=== PATIENT | male | born 1930 | race African-American/Black ===

== ENCOUNTER 2019-04-14 16:18 | Inpatient (IN) | payer MEDICARE, OTHER ==
[~2019-04-14] VITALS: Ht 172.7 cm; Wt 76.7 kg
[~2019-04-14 16:18] MED LIST: GABA600T7 PO; TRAM50TA PO; VENTOLIN HFA18 GM INH
[2019-04-14] MEDS ORDERED: IV NORMAL SALINE 1000ML BAG 1,000 ML IV ONE (17:00)
[2019-04-14 17:01] LABS: BILIRUBIN,URINE NEGATIVE (NEG); CLARITY,URINE CLEAR; COLOR,URINE YELLOW; NITRITE,URINE NEGATIVE (NEG); PH,URINE 6.5; PROTEIN,URINE NEGATIVE (NEG-TRACE)
[2019-04-14 17:06] LABS: BASO # 0.1 x10^3/uL (0.0-0.2); BASO % 1 % (0-3); EOS # 0.1 x10^3/uL (0.0-0.7); EOS % 2 % (0-3); HEMATOCRIT 43.9 % (39.0-53.0); HEMOGLOBIN 14.9 g/dL (13.0-17.5); LYMPH % 27 % (24-48); MEAN CORPUSCULAR HEMOGLOBIN 31 pg (25-35); MEAN CORPUSCULAR HGB CONC 34 g/dL (31-37); MEAN CORPUSCULAR VOLUME 92 fL (79-100); MONO # 0.6 x10^3/uL (0.0-1.1); MONO % 8 % (0-9); NEUT # 4.7 x10^3/uL (1.8-7.7); NEUT % 63 % (31-73); PLATELET COUNT 195 x10^3/uL (140-400); RED BLOOD COUNT 4.79 x10^6/uL (4.30-5.70); RED CELL DISTRIBUTION WIDTH 13.2 % (11.5-14.5); WHITE BLOOD COUNT 7.5 x10^3/uL (4.0-11.0)
[2019-04-14 17:08] LABS: AMPHETAMINE/METHAMPHETAMINE NEG (NEG); BARBITURATES NEG (NEG); BENZODIAZEPINES NEG (NEG); CANNABINOIDS NEG (NEG); COCAINE NEG (NEG); METHADONE NEG (NEG); OPIATES NEG (NEG); PHENCYCLIDINE NEG (NEG)
[2019-04-14 17:13] LABS: BACTERIA,URINE 0 /HPF (0-FEW); WBC,URINE 0 /HPF (0-4)
--- NOTE | 2019-04-14 17:25 | RAD ---
Examination: CT HEAD WO CONTRAST History: Altered mental status Comparison/Correlation: 06/08/2015 CT head without contrast Findings: Axial images of the head were obtained without contrast. Atrophy and chronic ischemic changes white matter noted. No intracranial hemorrhage, then shift, or mass effect. Left basal ganglier old lacunar infarct is present. No midline shift or mass effect. No depressed fracture. Impression: No suspicious new findings. Small old left basal ganglier lacunar infarct. PQRS Compliance Statement: One or more of the following individualized dose reduction techniques were utilized for this examination: 1. Automated exposure control 2. Adjustment of the mA and/or kV according to patient size 3. Use of iterative reconstruction technique Electronically signed by: Levi Penny MD (04/14/2019 5:22 PM) [facility]
[2019-04-14 17:27] LABS: CALCIUM 9.1 mg/dL (8.5-10.1); CREATININE 0.9 mg/dL (0.7-1.3); GFR 96.1; POTASSIUM 3.5 mmol/L (3.5-5.1)
[2019-04-14 17:34] LABS: ALBUMIN 3.7 g/dL (3.4-5.0); MAGNESIUM 1.7 mg/dL (1.8-2.4); TOTAL BILIRUBIN 0.4 mg/dL (0.2-1.0); TOTAL PROTEIN 7.4 g/dL (6.4-8.2)
[2019-04-14 17:38] LABS: CREATINE KINASE 52 U/L (39-308)
--- NOTE | 2019-04-14 17:44 | EKG ---
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
--- NOTE | 2019-04-14 18:28 | RAD ---
AP chest. HISTORY: Altered mental status AP view was taken of the chest. Lungs are clear. There is a hiatus hernia. There is no pleural effusion. Heart is normal in size. IMPRESSION: 1. Hiatus hernia. 2. No acute infiltrates. Electronically signed by: Rafael Love MD (04/14/2019 6:25 PM) [id number]
[2019-04-14 18:59] LABS: INFLUENZA A PATIENT NEGATIVE (NEGATIVE); INFLUENZA B PATIENT NEGATIVE (NEGATIVE)
[2019-04-14] MEDS ORDERED: ACETAMINOPHEN 325 MG TABLET. PO PRN ×2 (19:00→20:30)
[2019-04-14] MEDS ORDERED: ONDANSETRON PF 4 MG/2 ML VIAL. IV PRN ×2 (19:00→20:30)
--- NOTE | 2019-04-14 19:03 | PHYS DOC ---
Past Medical History Past Medical History: Asthma, Bronchitis, CVA, Other Additional Past Medical Histor: CHRONIC HIP PAIN, EMPHYSEMA Past Surgical History: Other Additional Past Surgical Histo: "BLEEDING ULCER REPAIR" Alcohol Use: None Drug Use: None Adult General Chief Complaint Chief Complaint: ALTERED MENTAL STATUS [facility] HPI Patient is a 88 year old male with history of previous CVA presenting to the ED today to be evaluated, reports patient has been acting normal for the last one week. reports patient had been saying things that are not real and doing unusual things like trying to turn on the car but was unable to because he could not remember how to. reports on another occasion patient tried to turn on the car with a house machado setting of the alarm. states patient informed her he was going to zoroastrianism earlier today but informed us in the Ed he was going to the store when he tried to get into the car sometime today. Patient himself states the and daughter are making things up about his behavior. reports patient is agitated as well Review of Systems Review of Systems Constitutional: Denies fever or chills [] Eyes: Denies change in visual acuity, redness, or eye pain [] HENT: Denies nasal congestion or sore throat [] Respiratory: Denies cough or shortness of breath [] Cardiovascular: No additional information not addressed in HPI [] GI: Denies abdominal pain, nausea, vomiting, bloody stools or diarrhea [] : Denies dysuria or hematuria [] Musculoskeletal: Denies back pain or joint pain [] Integument: Denies rash or skin lesions [] Neurologic: AMS. Denies headache, focal weakness or sensory changes [] Psych:psychosis. All other systems were reviewed and found to be within normal limits, except as documented in this note. Current Medications Current Medications Current Medications Medications (Trade) Dose Ordered Sig/Janelle Start Time Stop Time Status Last Admin Dose Admin Sodium Chloride 1,000 ml @ 1,000 mls/hr 1X ONCE 04/14/19 17:00 04/14/19 17:59 DC 04/14/19 18:07 1,000 MLS/HR Allergies Allergies Allergies Coded Allergies Type Severity Reaction Last Updated Verified No Known Drug Allergies 06/08/15 No Physical Exam Physical Exam Constitutional: Well developed, well nourished, no acute distress, non-toxic appearance. [] HENT: Normocephalic, atraumatic, bilateral external ears normal, oropharynx moist, no oral exudates, nose normal. [] Eyes: PERRLA, EOMI, conjunctiva normal, no discharge. [] Neck: Normal range of motion, no tenderness, supple, no stridor. [] Cardiovascular:Heart rate regular rhythm, no murmur [] Lungs & Thorax: Bilateral breath sounds clear to auscultation [] Abdomen: Bowel sounds normal, soft, no tenderness, no masses, no pulsatile masses. [] Skin: Warm, dry, no erythema, no rash. [] Back: No tenderness, no CVA tenderness. [] Extremities: No tenderness, no cyanosis, no clubbing, ROM intact, no edema. [] Neurologic: Alert and oriented X 3, normal motor function, normal sensory function, no focal deficits noted. Cranial nerves II through XII intact. Slight drop to the right face from previous stroke Psychologic: Affect normal, judgement normal, mood normal. [] Current Patient Data Vital Signs Vital Signs Date Time Temp Pulse Resp B/P (MAP) Pulse Ox O2 Delivery O2 Flow Rate FiO2 04/14/19 18:05 71 04/14/19 16:53 20 98 04/14/19 16:30 98.6 192/92 (125) Room Air 98.6 Lab Values Laboratory Tests Test 04/14/19 16:30 04/14/19 16:55 04/14/19 18:13 04/14/19 18:25 Urine Collection Type Unknown Urine Color Yellow Urine Clarity Clear Urine pH 6.5 Urine Specific [place] 1.015 Urine Protein Negative mg/dL (NEG-TRACE) Urine Glucose (UA) Negative mg/dL (NEG) Urine Ketones (Stick) Negative mg/dL (NEG) Urine Blood Negative (NEG) Urine Nitrite Negative (NEG) Urine Bilirubin Negative (NEG) Urine Urobilinogen Dipstick 1.0 mg/dL (0.2 mg/dL) Urine Leukocyte Esterase Negative (NEG) Urine RBC 1-2 /HPF (0-2) Urine WBC 0 /HPF (0-4) Urine Bacteria 0 /HPF (0-FEW) Urine Mucus Slight /LPF Urine Opiates Screen Neg (NEG) Urine Methadone Screen Neg (NEG) Urine Barbiturates Neg (NEG) Urine Phencyclidine Screen Neg (NEG) Urine Amphetamine/Methamphetamine Neg (NEG) Urine Benzodiazepines Screen Neg (NEG) Urine Cocaine Screen Neg (NEG) Urine Cannabinoids Screen Neg (NEG) Urine Ethyl Alcohol Neg (NEG) White Blood Count 7.5 x10^3/uL (4.0-11.0) Red Blood Count 4.79 x10^6/uL (4.30-5.70) Hemoglobin 14.9 g/dL (13.0-17.5) Hematocrit 43.9 % (39.0-53.0) Mean Corpuscular Volume 92 fL (79-100) Mean Corpuscular Hemoglobin 31 pg (25-35) Mean Corpuscular Hemoglobin Concent 34 g/dL (31-37) Red Cell Distribution Width 13.2 % (11.5-14.5) Platelet Count 195 x10^3/uL (140-400) Neutrophils (%) (Auto) 63 % (31-73) Lymphocytes (%) (Auto) 27 % (24-48) Monocytes (%) (Auto) 8 % (0-9) Eosinophils (%) (Auto) 2 % (0-3) Basophils (%) (Auto) 1 % (0-3) Neutrophils # (Auto) 4.7 x10^3/uL (1.8-7.7) Lymphocytes # (Auto) 2.0 x10^3/uL (1.0-4.8) Monocytes # (Auto) 0.6 x10^3/uL (0.0-1.1) Eosinophils # (Auto) 0.1 x10^3/uL (0.0-0.7) Basophils # (Auto) 0.1 x10^3/uL (0.0-0.2) Prothrombin Time 13.0 SEC (11.7-14.0) Prothrombin Time INR 1.0 (0.8-1.1) Activated Partial Thromboplast Time 30 SEC (24-38) Sodium Level 141 mmol/L (136-145) Potassium Level 3.5 mmol/L (3.5-5.1) Chloride Level 105 mmol/L (98-107) Carbon Dioxide Level 29 mmol/L (21-32) Anion Gap 7 (6-14) Blood Urea Nitrogen 14 mg/dL (8-26) Creatinine 0.9 mg/dL (0.7-1.3) Estimated GFR (Cockcroft-Gault) 96.1 BUN/Creatinine Ratio 16 (6-20) Glucose Level 148 mg/dL (70-99) H Calcium Level 9.1 mg/dL (8.5-10.1) Magnesium Level 1.7 mg/dL (1.8-2.4) L Total Bilirubin 0.4 mg/dL (0.2-1.0) Aspartate Amino Transferase (AST) 33 U/L (15-37) Alanine Aminotransferase (ALT) 42 U/L (16-63) Alkaline Phosphatase 74 U/L (46-116) Creatine Kinase 52 U/L (39-308) Creatine Kinase MB (Mass) 0.8 ng/mL (0.0-3.6) Creatine Kinase MB Relative Index % (0-4) Troponin I Quantitative < 0.017 ng/mL (0.000-0.055) WU-[id number]-Type Natriuretic Peptide 157 pg/mL (0-449) Total Protein 7.4 g/dL (6.4-8.2) Albumin 3.7 g/dL (3.4-5.0) Albumin/Globulin Ratio 1.0 (1.0-1.7) Lipase 59 U/L (73-393) L Procalcitonin < 0.10 ng/mL (0.00-0.10) Thyroid Stimulating Hormone (TSH) 3.114 uIU/mL (0.358-3.74) Influenza Type A Antigen Negative (NEGATIVE) Influenza Type B Antigen Negative (NEGATIVE) Lactic Acid Level 1.4 mmol/L (0.4-2.0) Ammonia < 10 mcmol/L (11-34) L Laboratory Tests 04/14/19 16:55 Laboratory Tests 04/14/19 16:55 Current Patient Data Vital Signs Date Time Temp Pulse Resp B/P (MAP) Pulse Ox O2 Delivery O2 Flow Rate FiO2 04/14/19 18:05 71 04/14/19 16:53 20 98 04/14/19 16:30 98.6 192/92 (125) Room Air 98.6 EKG EKG [address] Patel sinus rhythm HR 68 no STEMI[] Radiology/Procedures Radiology/Procedures []PROCEDURE: PORTABLE CHEST 1V AP chest. HISTORY: Altered mental status AP view was taken of the chest. Lungs are clear. There is a hiatus hernia. There is no pleural effusion. Heart is normal in size. IMPRESSION: 1. Hiatus hernia. 2. No acute infiltrates. Electronically signed by: Rafael Love MD (04/14/2019 6:25 PM) [facility] DICTATED and SIGNED BY: RAFAEL LOVE MD DATE: 04/14/19 182 PROCEDURE: CT HEAD WO CONTRAST Examination: CT HEAD WO CONTRAST History: Altered mental status Comparison/Correlation: 06/08/2015 CT head without contrast Findings: Axial images of the head were obtained without contrast. Atrophy and chronic ischemic changes white matter noted. No intracranial hemorrhage, then shift, or mass effect. Left basal ganglier old lacunar infarct is present. No midline shift or mass effect. No depressed fracture. Impression: No suspicious new findings. Small old left basal ganglier lacunar infarct. [facility]UST Compliance Statement: One or more of the following individualized dose reduction techniques were utilized for this examination: 1. Automated exposure control 2. Adjustment of the mA and/or kV according to patient size 3. Use of iterative reconstruction technique Electronically signed by: Levi Mace MD (04/14/2019 5:22 PM) [facility] DICTATED and SIGNED BY: LEVI MACE MD DATE: 04/14/19 172 Course & Med Decision Making Course & Med Decision Making Pertinent Labs and Imaging studies reviewed. (See chart for details) This is a 88-year-old male patient presenting to the ED today with the with complaints of patient not acting normal. See history of present illness. CT of the head is negative. Lab work is negative. Results were given to patient, and the daughter. Patient's daughter pulled me out of the room she states patient has been violent to the and she would like patient to stay. I asked her what she means by violent- is it physical or verbal or both. She gives an example the father trying to start the car and the taking the keys from him, she reports patient got upset and started using bad language and tried to grab the keys from the . Informed her I'll talk to the admitting doctor. I spoke to Dr. Granado went through patient's labs and imaging. He felt there is no medical necessity for admission. Information was given to the family including the daughter. The daughter got very upset stating she wants a letter right now from Dr. Granado stating patient will be discharged home despite his behavior and if there is any harm to the patient and family it will be [facility] fault. Informed her Dr. Manrique is not in house and there is no way he can send that type of letter because it is a legality surrounding such communication. She requested someone from management to type the letter and give it to them. Informed her there is no one from Management right now considering it is past business hours and the offices are closed. She continued to insist stating in this day and time the admitting physician should be able to write that letter if not in house fax it, email or send it to the ED right now. Informed her that will not be possible but i can call the admitting physician and expressed their concerns. She asked if i can write the letter informed her i can not do it because i am not the admitting physician I spoke with PAT team who stated if patient is being admitted they will not come and see him until tomorrow. Routine consult placed. I spoke with Dr. Granado again and informed him of the above information. He stated patient can be admitted by family should be made aware if the insurance or medicare does not pay for the admission they will be billed Daughter wanted to talk to me again, Prashanth was at the desk who talked to her see his note. He informed them patient can be suited for [facility]. Daughter now upset stating I withheld information about [facility]. Informed her that kind of information usually is done by PAT team after they evaluate patient and decide appropriate place for him and right now he has not been evaluated until tomorrow. I even tried telling the daughter i already consulted PAT team but with admission pending they will not come until tomorrow. Off note daughter called a LPN RN HOSPICE on speaker phone asking advice who informed her on patient should be admitted and they ( and daughter) can go home and have a good night sleep and tomorrow they can have a game plan. Patient was admitted. Off note patient has been very pleasant A&O X3. Very funny no signs of verbal or physical aggression. Dragon Disclaimer Dragon Disclaimer This electronic medical record was generated, in whole or in part, using a voice recognition dictation system. TPA Screening Tool TPA Screening Tool Screening tool completed (time): Last known normal time: Allergies: [] Criteria for treating patient with IV r-TPA: For symptom onset of 3 hours or less answer questions 1-9: If any answer 1-9 is YES, the patient is NOT Candidate for IV r-TPA. 1. Evidence of intracranial hemorrhage on pretreatment CT. 2. Clinical presentation suggestive of subarachnoid hemorrhage, even with normal CT 3. Known arteriovenous malformation or aneurysm. 4. Recent (within 3 months), intracranial surgery, serious head trauma, or pr evious stroke. 5. History of intracranial hemorrhage. 6. On repeated measurements, systolic blood pressure >185 mmHg or diastolic blood pressure >110 mmHg at the time treatment is to begin, and pt requires aggressive treatment to reduce blood pressure to within these limits (see BP Management section of TPA orders). 7. Known bleeding diathesis, including but not limited to: A) Platelet count less than 100,000mm3 B) Current or recent use of oral anticoagulants (e.g. Warfarin Sodium) with an INR greater than 1.7 C) Administration of heparin within 48 hours preceding the onset of stroke and an elevated PTT 8. Evidence of active bleeding or acute trauma. 9. Patient or family refuse. Warning/Consideration: If any answer 10-18 is YES, evaluate increased risk versus benefit. 10. Minor neurological deficit or rapidly improving symptoms. 11. Patient was observed to have seizure at the same time of onset of stroke symptoms. 12. Abnormal blood glucose (less than 50 or greater than 400 mg/dL). 13. Patient has had major surgery or serious trauma, excluding head trauma, in previous 14 days. 14. History of gastrointestinal or urinary track hemorrhage within 21 days. 15. Post [place] or pericarditis. 16. Recent arterial puncture at a noncompressible site. 17. Recent lumbar puncture. 18. . For symptoms greater than 3 hours but less than 4.5 hours duration: Warning/Consideration: If any answer 19-22 is YES, evaluate increased risk versus benefit. 19. Age greater than 80 years. 20. Current use of oral anticoagulants (e.g.Warfarin Sodium) regardless of protime. 21. Severe stroke (Baseline NIHSS Stroke Scale greater than 25). 22. Patient has both diabetes and history of stroke Initiate TPA (Alteplase)? Critical Care Time Critical Care Time Critical care time was [] minutes exclusive of procedures. Final Impression Final Impression [] NIHSS Stroke Scale NIH Stroke Scale: NIH Stroke Scale Response (Comments) Value Level of Consciousness: 0 Alert/Responsive 0 LOC Questions: 0 Answers both correctly 0 Best Gaze: 0 Normal 0 Visual: 0 No visual loss 0 Facial Palsy: 1 Minor paralysis (from previous stroke) 1 Motor - Left Arm 0 No drift 0 Motor - Right Arm 0 No drift 0 Motor - Left Leg 0 No drift 0 Motor: Right Leg 0 No drift 0 Limb Ataxia: 0 Absent 0 Sensory: 0 No loss 0 Best Language: 0 Normal 0 Dysathria: 0 Normal 0 Extinction and Inattention: 0 Normal 0 Total 1 Departure Departure Impression: Primary Impression: AMS (altered mental status) Additional Impression: Psychosis Disposition: 09 ADMITTED INPATIENT Condition: STABLE Referrals: COURTNEY SHIELDS (PCP) Problem Qualifiers Primary Impression: AMS (altered mental status) Altered mental status type: unspecified Qualified Codes: R41.82 - Altered mental status, unspecified Additional Impression: Psychosis Psychosis type: unspecified psychosis type Qualified Codes: F29 - Unspecified psychosis not due to a substance or known physiological condition GRETA ELLISON APRN Apr 14, 2019 19:03
[2019-04-14] MEDS ORDERED: cloNIDine HCL 0.1 MG TABLET PO PRN (20:00)
[2019-04-14] MEDS ORDERED: LISI-338 PO (20:30)
[2019-04-14] MEDS ORDERED: DEXTROSE 50% 25 GM / 50ML DISP.SYRIN. IV PRN (20:30)
[2019-04-14] MEDS ORDERED: IV DEXTROSE 5% 250 ML BAG. IV PRN (20:30)
[2019-04-14] MEDS: INSULIN LISPRO 300 UNITS/3 ML VIAL. SQ SCH (21:00)
[2019-04-14] MEDS ORDERED: ATORVASTATIN CALCIUM 40 MG TABLET. PO SCH (21:00)
[2019-04-14] MEDS ORDERED: LISINOPRIL 5 MG TABLET. PO ONE (21:00)
[2019-04-14] MEDS ORDERED: ENOXAPARIN 40 MG/0.4 ML SYRINGE. SQ SCH (21:00)
[2019-04-14 21:05] VITALS: BP 175/82
--- NOTE | 2019-04-14 21:05 | NUR ---
The patient, GINI LA, 88 y/o, M admitted by NAHOMI OZUNA MD, was given written information regarding hospital policies, unit procedures and contact persons. Valuables were checked and left with him.
[2019-04-14 23:19] VITALS: BP 158/72
[2019-04-15 02:58] VITALS: BP 147/68
--- NOTE | 2019-04-15 03:30 | NUR ---
Patient A/O x1-2 with confusion able to voice what he needs and wanted through out the night, did get a little lost at times such as when he was trying to go to the bathroom, when staff attempted to direct him to the toilet in his room he was a little embarrassed that he had passed by the bathroom in his room so he would make a joke that there were probably other and more suitable toilets out there just waiting for him to use, at first he would seem angry and then laugh about it, then he became polite right away and said, "You ladies have a good night, and thank you."
[2019-04-15 07:00] VITALS: BP 147/72
[2019-04-15] MEDS: INSULIN LISPRO 300 UNITS/3 ML VIAL. SQ SCH ×2 (07:30→11:30)
[2019-04-15] MEDS ORDERED: MAGNESIUM SULFATE 4GM 100 ML IV ONE (07:30)
--- NOTE | 2019-04-15 07:42 | PDOC1 ---
History and Physical Date of Admission Date of Admission DATE: 04/15/19 TIME: 07:26 Identification/Chief Complaint Chief Complaint Confusion, violent behavior Source Source: Caregiver, Chart review, Patient History of Present Illness History of Present Illness Mr Reeves is an 88yo M w/ PMHx Asthma, h/o CVA, hiatal hernia, PUD who was brought to ED per family 04/14/19 for confusion and violent behavior toward his per daughter and other family. His reports patient has been acting abnormally for the last week. reports patient has been hallucinating and doing unusual things like trying to turn on the car but was unable to because he could not remember how to. reports on another occasion patient tried to turn on the car with a house machado setting of the alarm. Patient himself states the and daughter are making things up about his behavior. reports patient is agitated as well. Family did bring up litigation against [employer] last night if patient was not admitted to the hospital. Patient was not opposed to hospital admission. CT head negative for acute pathology, did confirm old left basal ganglia i nfarct. He has been admitted a few times in the past for similar episodes with hallucinations and confusion, sundowning. Seen by neurology inpatient, no formal evaluation. Found on labs with TSH WNL, B12 as well. Glucose 148 fasting. Mag 1.7, K 3.5. Admitted for further care of encephalopathy. Past Medical History Cardiovascular: Hyperlipidemia Pulmonary: No pertinent hx CENTRAL NERVOUS SYSTEM: CVA, Dementia GI: GERD, Peptic Ulcer disease Heme/Onc: No pertinent hx Hepatobiliary: No pertinent hx Psych: No pertinent hx Rheumatologic: Other (Right leg complex regional pain syndrome) Infectious disease: No pertinent hx ENT: No pertinent hx Renal/: No pertinent hx Endocrine: No pertinent hx Dermatology: No pertinent hx Past Surgical History Past Surgical History: No pertinent history Family History Family History: No Significant Social History Smoke: No ALCOHOL: none Drugs: None Current Problem List Problem List Problems Medical Problems: (1) AMS (altered mental status) Status: Acute (2) Psychosis Status: Acute Current Medications Current Medications Current Medications Sodium Chloride 1,000 ml @ 1,000 mls/hr 1X ONCE IV Last administered on 04/14/19at 18:07; Start 04/14/19 at 17:00; Stop 04/14/19 at 17:59; Status DC Ondansetron HCl (Zofran) 4 mg PRN Q8HRS PRN IV NAUSEA/VOMITING; Start 04/14/19 at 19:00; Stop 04/14/19 at 20:30; Status DC Acetaminophen (Tylenol) 650 mg PRN Q4HRS PRN PO FEVER; Start 04/14/19 at 19:00; Stop 04/14/19 at 20:30; Status DC Clonidine HCl (Catapres) 0.1 mg PRN Q6HRS PRN PO HYPERTENSION; Start 04/14/19 at 20:00 Ondansetron HCl (Zofran) 4 mg PRN Q6HRS PRN IV NAUSEA/VOMITING; Start 04/14/19 at 20:30 Acetaminophen (Tylenol) 650 mg PRN Q6HRS PRN PO FEVER; Start 04/14/19 at 20:30 Insulin Human Lispro (HumaLOG) 0-7 UNITS TIDACHC SQ ; Start 04/14/19 at 21:00 Dextrose (Dextrose 50%-Water Syringe) 12.5 gm PRN Q15MIN PRN IV SEE COMMENTS; Start 04/14/19 at 20:30 Dextrose (Iv Dextrose 5%) 250 ml PRN Q15MIN PRN IV SEE COMMENTS; Start 04/14/19 at 20:30 Lisinopril (Prinivil) 5 mg 1X ONCE PO Last administered on 04/14/19at 22:30; Start 04/14/19 at 21:00; Stop 04/14/19 at 21:01; Status DC Olanzapine (ZyPREXA ZYDIS) 5 mg PRN BID PRN PO AGITATION; Start 04/14/19 at 20:45 Enoxaparin Sodium (Lovenox 40mg Syringe) 40 mg Q24H SQ Last administered on 04/14/19at 22:31; Start 04/14/19 at 21:00 Aspirin (Faina Aspirin) 325 mg DAILYWBKFT PO ; Start 04/15/19 at 08:00 Atorvastatin Calcium (Lipitor) 40 mg QHS PO Last administered on 04/14/19at 22:29; Start 04/14/19 at 21:00 Magnesium Sulfate 100 ml @ 25 mls/hr 1X ONCE IV ; Start 04/15/19 at 07:30; Stop 04/15/19 at 11:29; Status UNV Active Scripts Active Reported Lisinopril 5 Mg Tablet 5 Mg PO DAILY 90 Days Tramadol Hcl 50 Mg Tablet 50 Mg PO BID Ventolin Hfa Inhaler (Albuterol Sulfate) 18 Gm Hfa.aer.ad 2 Puff INH Q4HRS PRN Gabapentin 600 Mg Tablet 600 Mg PO BID Allergies Allergies: Coded Allergies: No Known Drug Allergies (Unverified , 06/08/15) ROS General: No: Chills, Night Sweats, Fatigue, Malaise, Appetite, Other PSYCHOLOGICAL ROS: No: Anxiety, Behavioral Disorder, Concentration difficultie, Decreased libido, Depression, Disorientation, Hallucinations, Hostility, Irritablity, Memory difficulties, Mood Swings, Obsessive thoughts, Physical abuse, Sexual abuse, Sleep disturbances, Suicidal ideation, Other Eyes: No Blurry vision, No Decreased vision, No Double vision, No Dry eyes, No Excessive tearing, No Eye Pain, No Itchy Eyes, No Loss of vision, No Photophobia, No Scotomata, No Uses contacts, No Uses glasses, No Other HEENT: No: Heacaches, Visual Changes, Hearing change, Nasal congestion, Nasal discharge, Oral lesions, Sinus pain, Sore Throat, Epistaxis, Sneezing, Snoring, Tinnitus, Vertigo, Vocal changes, Other ALLERGY AND IMMUNOLOGY: No: Hives, Insect Bite Sensitivity, Itchy/Watery Eyes, Nasal Congestion, Post Nasal Drip, Seasonal Allergies, Other Hematological and Lymphatic: No: Bleeding Problems, Blood Clots, Blood Transfusions, Brusing, Night Sweats, Pallor, Swollen Lymph Nodes, Other ENDOCRINE: No: Breast Changes, Galactorrhea, Hair Pattern Changes, Hot Flashes, Malaise/lethargy, Mood Swings, Palpitations, Polydipsia/polyuria, Skin Changes, Temperature Intolerance, Unexpected Weight Changes, Other Breast: No New/Changing Breast Lumps, No Nipple changes, No Nipple discharge, No Other Respiratory: No: Cough, Hemoptysis, Orthopnea, Pleuritic Pain, Shortness of breath, SOB with excertion, Sputum Changes, Stridor, Tachypnea, Wheezing, Other Cardiovascular: No Chest Pain, No Palpitations, No Orthopnea, No Paroxysmal Noc. Dyspnea, No Edema, No Lt Headedness, No Other Gastrointestinal: No Nausea, No Vomiting, No Abdominal Pain, No Diarrhea, No Constipation, No Melena, No Hematochezia, No Other Genitourinary: No Dysuria, No Frequency, No Incontinence, No Hematuria, No Retention, No Discharge, No Urgency, No Pain, No Flank Pain, No Other, No , No , No , No , No , No , No Musculoskeletal: Yes Gait Disturbance, Yes Joint Pain, Yes Muscle Pain; No Joint Stiffness, No Joint Swelling, No Muscular Weakness, No Pain In:, No Swelling In:, No Other Neurological: Yes Gait Disturbance; No Behavorial Changes, No Bowel/Bladder ControlChng, No Confusion, No Dizziness, No Headaches, No Impaired Coord/balance, No Memory Loss, No Numbness/Tingling, No Seizures, No Speech Problems, No Tremors, No Visual Changes, No Weakness, No Other Skin: No Dry Skin, No Eczema, No Hair Changes, No Lumps, No Mole Changes, No Mottling, No Nail Changes, No Pruritus, No Rash, No Skin Lesion Changes, No Other, No Acne Physical Exam General: Alert, Oriented X3, Cooperative, No acute distress HEENT: Atraumatic, PERRLA, EOMI, Mucous membr. moist/pink Lungs: Clear to auscultation, Normal air movement Heart: S1S2, RRR, no thrills, no rubs, no gallops, no murmurs Abdomen: Normal bowel sounds, Soft, No tenderness, No hepatosplenomegaly, No masses Rectal Exam: not examined Extremities: No clubbing, No cyanosis, No edema, Normal pulses, No tenderness/swelling Skin: No rashes, No breakdown, No significant lesion Neuro: Normal gait, Normal speech, Strength at 5/5 X4 ext, Normal tone, Sensation intact, Cranial nerves 3-12 NL, Reflexes 2+ Psych/Mental Status: Mental status NL, Mood NL Vitals Vitals Vital Signs Date Time Temp Pulse Resp B/P (MAP) Pulse Ox O2 Delivery O2 Flow Rate FiO2 04/15/19 02:58 98.1 65 18 147/68 (94) 98 Room Air 98.1 Labs Labs Laboratory Tests Test 04/14/19 16:30 04/14/19 16:55 04/14/19 18:13 04/14/19 18:25 Urine Collection Type Unknown Urine Color Yellow Urine Clarity Clear Urine pH 6.5 Urine Specific [place] 1.015 Urine Protein Negative mg/dL (NEG-TRACE) Urine Glucose (UA) Negative mg/dL (NEG) Urine Ketones (Stick) Negative mg/dL (NEG) Urine Blood Negative (NEG) Urine Nitrite Negative (NEG) Urine Bilirubin Negative (NEG) Urine Urobilinogen Dipstick 1.0 mg/dL (0.2 mg/dL) Urine Leukocyte Esterase Negative (NEG) Urine RBC 1-2 /HPF (0-2) Urine WBC 0 /HPF (0-4) Urine Bacteria 0 /HPF (0-FEW) Urine Mucus Slight /LPF Urine Opiates Screen Neg (NEG) Urine Methadone Screen Neg (NEG) Urine Barbiturates Neg (NEG) Urine Phencyclidine Screen Neg (NEG) Urine Amphetamine/Methamphetamine Neg (NEG) Urine Benzodiazepines Screen Neg (NEG) Urine Cocaine Screen Neg (NEG) Urine Cannabinoids Screen Neg (NEG) Urine Ethyl Alcohol Neg (NEG) White Blood Count 7.5 x10^3/uL (4.0-11.0) Red Blood Count 4.79 x10^6/uL (4.30-5.70) Hemoglobin 14.9 g/dL (13.0-17.5) Hematocrit 43.9 % (39.0-53.0) Mean Corpuscular Volume 92 fL (79-100) Mean Corpuscular Hemoglobin 31 pg (25-35) Mean Corpuscular Hemoglobin Concent 34 g/dL (31-37) Red Cell Distribution Width 13.2 % (11.5-14.5) Platelet Count 195 x10^3/uL (140-400) Neutrophils (%) (Auto) 63 % (31-73) Lymphocytes (%) (Auto) 27 % (24-48) Monocytes (%) (Auto) 8 % (0-9) Eosinophils (%) (Auto) 2 % (0-3) Basophils (%) (Auto) 1 % (0-3) Neutrophils # (Auto) 4.7 x10^3/uL (1.8-7.7) Lymphocytes # (Auto) 2.0 x10^3/uL (1.0-4.8) Monocytes # (Auto) 0.6 x10^3/uL (0.0-1.1) Eosinophils # (Auto) 0.1 x10^3/uL (0.0-0.7) Basophils # (Auto) 0.1 x10^3/uL (0.0-0.2) Prothrombin Time 13.0 SEC (11.7-14.0) Prothromb Time International Ratio 1.0 (0.8-1.1) Activated Partial Thromboplast Time 30 SEC (24-38) Sodium Level 141 mmol/L (136-145) Potassium Level 3.5 mmol/L (3.5-5.1) Chloride Level 105 mmol/L (98-107) Carbon Dioxide Level 29 mmol/L (21-32) Anion Gap 7 (6-14) Blood Urea Nitrogen 14 mg/dL (8-26) Creatinine 0.9 mg/dL (0.7-1.3) Estimated GFR (Cockcroft-Gault) 96.1 BUN/Creatinine Ratio 16 (6-20) Glucose Level 148 mg/dL (70-99) Calcium Level 9.1 mg/dL (8.5-10.1) Magnesium Level 1.7 mg/dL (1.8-2.4) Total Bilirubin 0.4 mg/dL (0.2-1.0) Aspartate Amino Transf (AST/SGOT) 33 U/L (15-37) Alanine Aminotransferase (ALT/SGPT) 42 U/L (16-63) Alkaline Phosphatase 74 U/L (46-116) Creatine Kinase 52 U/L (39-308) Creatine Kinase MB (Mass) 0.8 ng/mL (0.0-3.6) Creatine Kinase MB Relative Index % (0-4) Troponin I Quantitative < 0.017 ng/mL (0.000-0.055) WY-Hhd-V-Type Natriuretic Peptide 157 pg/mL (0-449) Total Protein 7.4 g/dL (6.4-8.2) Albumin 3.7 g/dL (3.4-5.0) Albumin/Globulin Ratio 1.0 (1.0-1.7) Lipase 59 U/L (73-393) Vitamin B12 Level 547 pg/mL (247-911) Procalcitonin < 0.10 ng/mL (0.00-0.10) Thyroid Stimulating Hormone (TSH) 3.114 uIU/mL (0.358-3.74) Influenza Type A Antigen Negative (NEGATIVE) Influenza Type B Antigen Negative (NEGATIVE) Lactic Acid Level 1.4 mmol/L (0.4-2.0) Ammonia < 10 mcmol/L (11-34) Test 04/14/19 21:27 Glucose (Fingerstick) 111 mg/dL (70-99) Laboratory Tests Test 04/14/19 16:30 04/14/19 16:55 04/14/19 18:13 04/14/19 18:25 Urine Collection Type Unknown Urine Color Yellow Urine Clarity Clear Urine pH 6.5 Urine Specific [place] 1.015 Urine Protein Negative mg/dL (NEG-TRACE) Urine Glucose (UA) Negative mg/dL (NEG) Urine Ketones (Stick) Negative mg/dL (NEG) Urine Blood Negative (NEG) Urine Nitrite Negative (NEG) Urine Bilirubin Negative (NEG) Urine Urobilinogen Dipstick 1.0 mg/dL (0.2 mg/dL) Urine Leukocyte Esterase Negative (NEG) Urine RBC 1-2 /HPF (0-2) Urine WBC 0 /HPF (0-4) Urine Bacteria 0 /HPF (0-FEW) Urine Mucus Slight /LPF Urine Opiates Screen Neg (NEG) Urine Methadone Screen Neg (NEG) Urine Barbiturates Neg (NEG) Urine Phencyclidine Screen Neg (NEG) Urine Amphetamine/Methamphetamine Neg (NEG) Urine Benzodiazepines Screen Neg (NEG) Urine Cocaine Screen Neg (NEG) Urine Cannabinoids Screen Neg (NEG) Urine Ethyl Alcohol Neg (NEG) White Blood Count 7.5 x10^3/uL (4.0-11.0) Red Blood Count 4.79 x10^6/uL (4.30-5.70) Hemoglobin 14.9 g/dL (13.0-17.5) Hematocrit 43.9 % (39.0-53.0) Mean Corpuscular Volume 92 fL (79-100) Mean Corpuscular Hemoglobin 31 pg (25-35) Mean Corpuscular Hemoglobin Concent 34 g/dL (31-37) Red Cell Distribution Width 13.2 % (11.5-14.5) Platelet Count 195 x10^3/uL (140-400) Neutrophils (%) (Auto) 63 % (31-73) Lymphocytes (%) (Auto) 27 % (24-48) Monocytes (%) (Auto) 8 % (0-9) Eosinophils (%) (Auto) 2 % (0-3) Basophils (%) (Auto) 1 % (0-3) Neutrophils # (Auto) 4.7 x10^3/uL (1.8-7.7) Lymphocytes # (Auto) 2.0 x10^3/uL (1.0-4.8) Monocytes # (Auto) 0.6 x10^3/uL (0.0-1.1) Eosinophils # (Auto) 0.1 x10^3/uL (0.0-0.7) Basophils # (Auto) 0.1 x10^3/uL (0.0-0.2) Prothrombin Time 13.0 SEC (11.7-14.0) Prothromb Time International Ratio 1.0 (0.8-1.1) Activated Partial Thromboplast Time 30 SEC (24-38) Sodium Level 141 mmol/L (136-145) Potassium Level 3.5 mmol/L (3.5-5.1) Chloride Level 105 mmol/L (98-107) Carbon Dioxide Level 29 mmol/L (21-32) Anion Gap 7 (6-14) Blood Urea Nitrogen 14 mg/dL (8-26) Creatinine 0.9 mg/dL (0.7-1.3) Estimated GFR (Cockcroft-Gault) 96.1 BUN/Creatinine Ratio 16 (6-20) Glucose Level 148 mg/dL (70-99) Calcium Level 9.1 mg/dL (8.5-10.1) Magnesium Level 1.7 mg/dL (1.8-2.4) Total Bilirubin 0.4 mg/dL (0.2-1.0) Aspartate Amino Transf (AST/SGOT) 33 U/L (15-37) Alanine Aminotransferase (ALT/SGPT) 42 U/L (16-63) Alkaline Phosphatase 74 U/L (46-116) Creatine Kinase 52 U/L (39-308) Creatine Kinase MB (Mass) 0.8 ng/mL (0.0-3.6) Creatine Kinase MB Relative Index % (0-4) Troponin I Quantitative < 0.017 ng/mL (0.000-0.055) JP-Kko-D-Type Natriuretic Peptide 157 pg/mL (0-449) Total Protein 7.4 g/dL (6.4-8.2) Albumin 3.7 g/dL (3.4-5.0) Albumin/Globulin Ratio 1.0 (1.0-1.7) Lipase 59 U/L (73-393) Vitamin B12 Level 547 pg/mL (247-911) Procalcitonin < 0.10 ng/mL (0.00-0.10) Thyroid Stimulating Hormone (TSH) 3.114 uIU/mL (0.358-3.74) Influenza Type A Antigen Negative (NEGATIVE) Influenza Type B Antigen Negative (NEGATIVE) Lactic Acid Level 1.4 mmol/L (0.4-2.0) Ammonia < 10 mcmol/L (11-34) Test 04/14/19 21:27 Glucose (Fingerstick) 111 mg/dL (70-99) Images Images CT head - Atrophy and chronic ischemic changes white matter noted. No intracranial hemorrhage, then shift, or mass effect. Left basal ganglier old lacunar infarct is present. No midline shift or mass effect. No depressed fracture. Impression: No suspicious new findings. Small old left basal ganglier lacunar infarct. CXR - Lungs are clear. There is a hiatus hernia. There is no pleural effusion. Heart is normal in size. IMPRESSION: 1. Hiatus hernia. 2. No acute infiltrates. VTE Prophylaxis Ordered VTE Prophylaxis Devices: Yes VTE Pharmacological Prophylaxi: No Assessment/Plan Assessment/Plan A/P: Acute encephalopathy - with hallucinations, visual and auditory. Previously thought to be late-onset dementia, most likely vascular vs Alzheimer type Dementia features - previously noted by neurology. Will have OT assess his ADLs. May need to consider placement Hypomagnesemia - will replace, replace K as well Chronic pain in right LE - PT to see GI ulcer - on PPI Hiatal hernia - PPI as above Old lacunar infarct in left thalamus and putamen - needs ASA and statin to prevent further CVA. Check A1c given his hyperglycemia FEN - ADA diet PPX - lovenox FULL CODE Dispo - inpatient NAHOMI OZUNA MD Apr 15, 2019 07:42
[2019-04-15] MEDS ORDERED: POTASSIUM CHLORIDE 20 MEQ TABLET.ER. PO ONE (07:45)
[2019-04-15] MEDS ORDERED: ASPIRIN 325 MG TABLET PO SCH (08:00)
[2019-04-15 08:33] LABS: BASO % 1 % (0-3); EOS # 0.1 x10^3/uL (0.0-0.7); EOS % 2 % (0-3); HEMATOCRIT 44.3 % (39.0-53.0); HEMOGLOBIN 15.1 g/dL (13.0-17.5); LYMPH # 1.9 x10^3/uL (1.0-4.8); LYMPH % 29 % (24-48); MEAN CORPUSCULAR HEMOGLOBIN 31 pg (25-35); MEAN CORPUSCULAR HGB CONC 34 g/dL (31-37); MEAN CORPUSCULAR VOLUME 92 fL (79-100); MONO # 0.4 x10^3/uL (0.0-1.1); MONO % 7 % (0-9); NEUT # 4.1 x10^3/uL (1.8-7.7); NEUT % 62 % (31-73); PLATELET COUNT 192 x10^3/uL (140-400); RED BLOOD COUNT 4.83 x10^6/uL (4.30-5.70); RED CELL DISTRIBUTION WIDTH 12.9 % (11.5-14.5); WHITE BLOOD COUNT 6.6 x10^3/uL (4.0-11.0)
[2019-04-15 08:56] LABS: ALBUMIN 3.7 g/dL (3.4-5.0); ALBUMIN/GLOBULIN RATIO 1.1 (1.0-1.7); CALCIUM 9.1 mg/dL (8.5-10.1); CHOLESTEROL/HDL RATIO 2.3; CREATININE 0.8 mg/dL (0.7-1.3); GFR 110.1; POTASSIUM 4.4 mmol/L (3.5-5.1); TOTAL BILIRUBIN 0.6 mg/dL (0.2-1.0); TOTAL PROTEIN 7.2 g/dL (6.4-8.2)
[2019-04-15 11:00] VITALS: BP 116/98
--- NOTE | 2019-04-15 11:27 | NUR ---
SW consulted for urban psych eval due to confusion. PAT tea consult also noted. SATINDER phoned PAT team for assessment and eval. Discussed with RN.
[2019-04-15] MEDS ORDERED: MEMA10TA PO (13:56)
[2019-04-15] MEDS ORDERED: OLAN5TAB5 PO (13:56)
--- NOTE | 2019-04-15 13:58 | SNU/HH DC ---
DISCHARGE WITH HOME HEALTH DISCHARGE INFORMATION: Discharge Date: Apr 15, 2019 Final Diagnosis: Problems Medical Problems: (1) AMS (altered mental status) Status: Acute (2) Psychosis Status: Acute Condition on Discharge: Stable CODE STATUS: Code Status: Full HOME HEALTH: Face to Face: I certify this patient is under my care and that I, or a nurse practitioner or physician's customer service assistant working with me, had a face to face encounter that meets the physician face to face encounter requirements with this patient on 04/15/2019. Medical Complications: CVA, Dementia Longterm For: Assess & Educate Safety, Assess/Skilled Observatio, Medication Management RN For Eval/Treatment: Yes Physical Therapy For: Evalulation/Treatment Occupational Therapy For: Evaluation/Treatment Pt Meets Homebound Status: Poor cognition, Psychological condition POST DISCHARGE ORDERS: Activity Instructions for Disc: Activity as tolerated Weight Bearing Status after Di: As tolerated DIET AFTER DISCHARGE: Regular CHECKS AFTER DISCHARGE: Checks after discharge: Check blood press - daily, Check your Temp as needed CERTIFICATION STATEMENT: Certification Statement: Certification Statement: Based on the above finding, I certify that this patient is confined to the home and needs intermittent mcc care, physical therapy and/or speech therapy, or continues to need occupational therapy.~ This patient is under my care, and I have initiated the establishment of the plan of care.~ This patient will be followed by myself or a community physician who will periodically review the plan of care. Home Meds Active Scripts Memantine Hcl (NAMENDA) 10 Mg Tablet, 1 TAB PO BID for dementia, #60 TAB 5 Refills Prov:NAHOMI OZUNA MD 04/15/19 Olanzapine (ZYPREXA ZYDIS) 5 Mg Tab.rapdis, 5 MG PO PRN BID PRN for AGITATION for 30 Days, #30 TAB Prov:NAHOMI OZUNA MD 04/15/19 Reported Medications Lisinopril (LISINOPRIL) 5 Mg Tablet, 5 MG PO DAILY for HTN for 90 Days, #90 04/14/19 Tramadol Hcl (TRAMADOL HCL) 50 Mg Tablet, 50 MG PO BID, TAB 0 Refills 06/09/15 Albuterol Sulfate (VENTOLIN HFA INHALER) 18 Gm Hfa.aer.ad, 2 PUFF INH Q4HRS PRN for COUGH, INHALER 0 Refills 06/09/15 Discontinued Reported Medications Gabapentin (GABAPENTIN) 600 Mg Tablet, 600 MG PO BID, TAB 06/09/15 NAHOMI OZUNA MD Apr 15, 2019 13:58
--- NOTE | 2019-04-15 14:16 | NUR ---
SW following pt. Pt seen by PAT team and recommend f/u with PCP and [facility]. Pt was able to complete AD form and named his daughter, Isis to pt is DPOA. Pt/daughter provided with original/copies to take home. Copy placed on chart by escrow secretary. SW spoke with [facility] (at capacity not taking pts), [facility] (at capacity, out of network), [facility] (no return phone call). Other HH agencies currently are closed for holiday and there is only few that take pt's insurance. Discussed with RN to have pt f/u with PCP to get HH set up at home.
--- NOTE | 2019-04-15 15:11 | NUR ---
patient discharged home with and daughter. daughter will be staying with both pt and during the holidays and will ensure safety is in place. instructed to follow up w/ PCP within next 1-2 weeks to seek placement at [facility], as well as Dr. Cao w/in 3-4 weeks. scripts for zyprexa and namenda sent electronically to pharmacy on file. IV removed from RFA, cath intact. pt stable upon DC.
--- NOTE | 2019-04-15 15:14 | NUR ---
pt discharged home with and daughter. given instructions to follow up with PCP w/in 1-2 weeks to seek placement at [facility]. will f/u with Dr. Cao in 3-4 weeks. Scripts for zyprexa and namenda sent to pharmacy on file. daughter will be staying with pt and over the holidays to ensure safety. IV removed from R forearm, cath intact. pt stable upon dc.
--- NOTE | 2019-04-15 21:55 | PDOC3 ---
Discharge Summary Visit Information Date of Admission: Apr 14, 2019 Date of Discharge: Apr 15, 2019 Admitting Diagnosis: Altered mental status Final Diagnosis Problems Medical Problems: (1) AMS (altered mental status) Status: Acute (2) Psychosis Status: Acute Brief Hospital Course Allergies Allergies Coded Allergies Type Severity Reaction Last Updated Verified No Known Drug Allergies 06/08/15 No Vital Signs Vital Signs Date Time Temp Pulse Resp B/P (MAP) Pulse Ox O2 Delivery O2 Flow Rate FiO2 04/15/19 11:00 98.3 60 18 116/98 (104) 97 Room Air 98.3 Lab Results Laboratory Tests Test 04/14/19 16:30 04/14/19 16:55 04/14/19 18:13 04/14/19 18:25 Urine Collection Type Unknown Urine Color Yellow Urine Clarity Clear Urine pH 6.5 Urine Specific Haslett 1.015 Urine Protein Negative mg/dL (NEG-TRACE) Urine Glucose (UA) Negative mg/dL (NEG) Urine Ketones (Stick) Negative mg/dL (NEG) Urine Blood Negative (NEG) Urine Nitrite Negative (NEG) Urine Bilirubin Negative (NEG) Urine Urobilinogen Dipstick 1.0 mg/dL (0.2 mg/dL) Urine Leukocyte Esterase Negative (NEG) Urine RBC 1-2 /HPF (0-2) Urine WBC 0 /HPF (0-4) Urine Bacteria 0 /HPF (0-FEW) Urine Mucus Slight /LPF Urine Opiates Screen Neg (NEG) Urine Methadone Screen Neg (NEG) Urine Barbiturates Neg (NEG) Urine Phencyclidine Screen Neg (NEG) Urine Amphetamine/Methamphetamine Neg (NEG) Urine Benzodiazepines Screen Neg (NEG) Urine Cocaine Screen Neg (NEG) Urine Cannabinoids Screen Neg (NEG) Urine Ethyl Alcohol Neg (NEG) White Blood Count 7.5 x10^3/uL (4.0-11.0) Red Blood Count 4.79 x10^6/uL (4.30-5.70) Hemoglobin 14.9 g/dL (13.0-17.5) Hematocrit 43.9 % (39.0-53.0) Mean Corpuscular Volume 92 fL (79-100) Mean Corpuscular Hemoglobin 31 pg (25-35) Mean Corpuscular Hemoglobin Concent 34 g/dL (31-37) Red Cell Distribution Width 13.2 % (11.5-14.5) Platelet Count 195 x10^3/uL (140-400) Neutrophils (%) (Auto) 63 % (31-73) Lymphocytes (%) (Auto) 27 % (24-48) Monocytes (%) (Auto) 8 % (0-9) Eosinophils (%) (Auto) 2 % (0-3) Basophils (%) (Auto) 1 % (0-3) Neutrophils # (Auto) 4.7 x10^3/uL (1.8-7.7) Lymphocytes # (Auto) 2.0 x10^3/uL (1.0-4.8) Monocytes # (Auto) 0.6 x10^3/uL (0.0-1.1) Eosinophils # (Auto) 0.1 x10^3/uL (0.0-0.7) Basophils # (Auto) 0.1 x10^3/uL (0.0-0.2) Prothrombin Time 13.0 SEC (11.7-14.0) Prothromb Time International Ratio 1.0 (0.8-1.1) Activated Partial Thromboplast Time 30 SEC (24-38) Sodium Level 141 mmol/L (136-145) Potassium Level 3.5 mmol/L (3.5-5.1) Chloride Level 105 mmol/L (98-107) Carbon Dioxide Level 29 mmol/L (21-32) Anion Gap 7 (6-14) Blood Urea Nitrogen 14 mg/dL (8-26) Creatinine 0.9 mg/dL (0.7-1.3) Estimated GFR (Cockcroft-Gault) 96.1 BUN/Creatinine Ratio 16 (6-20) Glucose Level 148 mg/dL (70-99) Calcium Level 9.1 mg/dL (8.5-10.1) Magnesium Level 1.7 mg/dL (1.8-2.4) Total Bilirubin 0.4 mg/dL (0.2-1.0) Aspartate Amino Transf (AST/SGOT) 33 U/L (15-37) Alanine Aminotransferase (ALT/SGPT) 42 U/L (16-63) Alkaline Phosphatase 74 U/L (46-116) Creatine Kinase 52 U/L (39-308) Creatine Kinase MB (Mass) 0.8 ng/mL (0.0-3.6) Creatine Kinase MB Relative Index % (0-4) Troponin I Quantitative < 0.017 ng/mL (0.000-0.055) OP-Ynh-A-Type Natriuretic Peptide 157 pg/mL (0-449) Total Protein 7.4 g/dL (6.4-8.2) Albumin 3.7 g/dL (3.4-5.0) Albumin/Globulin Ratio 1.0 (1.0-1.7) Lipase 59 U/L (73-393) Vitamin B12 Level 547 pg/mL (247-911) Procalcitonin < 0.10 ng/mL (0.00-0.10) Thyroid Stimulating Hormone (TSH) 3.114 uIU/mL (0.358-3.74) Influenza Type A Antigen Negative (NEGATIVE) Influenza Type B Antigen Negative (NEGATIVE) Lactic Acid Level 1.4 mmol/L (0.4-2.0) Ammonia < 10 mcmol/L (11-34) Test 04/14/19 21:27 04/15/19 07:57 04/15/19 08:22 04/15/19 11:35 Glucose (Fingerstick) 111 mg/dL (70-99) 115 mg/dL (70-99) 99 mg/dL (70-99) White Blood Count 6.6 x10^3/uL (4.0-11.0) Red Blood Count 4.83 x10^6/uL (4.30-5.70) Hemoglobin 15.1 g/dL (13.0-17.5) Hematocrit 44.3 % (39.0-53.0) Mean Corpuscular Volume 92 fL (79-100) Mean Corpuscular Hemoglobin 31 pg (25-35) Mean Corpuscular Hemoglobin Concent 34 g/dL (31-37) Red Cell Distribution Width 12.9 % (11.5-14.5) Platelet Count 192 x10^3/uL (140-400) Neutrophils (%) (Auto) 62 % (31-73) Lymphocytes (%) (Auto) 29 % (24-48) Monocytes (%) (Auto) 7 % (0-9) Eosinophils (%) (Auto) 2 % (0-3) Basophils (%) (Auto) 1 % (0-3) Neutrophils # (Auto) 4.1 x10^3/uL (1.8-7.7) Lymphocytes # (Auto) 1.9 x10^3/uL (1.0-4.8) Monocytes # (Auto) 0.4 x10^3/uL (0.0-1.1) Eosinophils # (Auto) 0.1 x10^3/uL (0.0-0.7) Basophils # (Auto) 0.0 x10^3/uL (0.0-0.2) Sodium Level 143 mmol/L (136-145) Potassium Level 4.4 mmol/L (3.5-5.1) Chloride Level 105 mmol/L (98-107) Carbon Dioxide Level 30 mmol/L (21-32) Anion Gap 8 (6-14) Blood Urea Nitrogen 11 mg/dL (8-26) Creatinine 0.8 mg/dL (0.7-1.3) Estimated GFR (Cockcroft-Gault) 110.1 BUN/Creatinine Ratio 14 (6-20) Glucose Level 151 mg/dL (70-99) Calcium Level 9.1 mg/dL (8.5-10.1) Total Bilirubin 0.6 mg/dL (0.2-1.0) Aspartate Amino Transf (AST/SGOT) 35 U/L (15-37) Alanine Aminotransferase (ALT/SGPT) 43 U/L (16-63) Alkaline Phosphatase 75 U/L (46-116) Total Protein 7.2 g/dL (6.4-8.2) Albumin 3.7 g/dL (3.4-5.0) Albumin/Globulin Ratio 1.1 (1.0-1.7) Triglycerides Level 77 mg/dL (0-150) Cholesterol Level 153 mg/dL (0-200) LDL Cholesterol, Calculated 72 mg/dL (0-100) VLDL Cholesterol, Calculated 15 mg/dL (0-40) Non-HDL Cholesterol Calculated 87 mg/dL (0-129) HDL Cholesterol 66 mg/dL (40-60) Cholesterol/HDL Ratio 2.3 Laboratory Tests Test 04/15/19 07:57 04/15/19 08:22 04/15/19 11:35 Glucose (Fingerstick) 115 mg/dL (70-99) 99 mg/dL (70-99) White Blood Count 6.6 x10^3/uL (4.0-11.0) Red Blood Count 4.83 x10^6/uL (4.30-5.70) Hemoglobin 15.1 g/dL (13.0-17.5) Hematocrit 44.3 % (39.0-53.0) Mean Corpuscular Volume 92 fL (79-100) Mean Corpuscular Hemoglobin 31 pg (25-35) Mean Corpuscular Hemoglobin Concent 34 g/dL (31-37) Red Cell Distribution Width 12.9 % (11.5-14.5) Platelet Count 192 x10^3/uL (140-400) Neutrophils (%) (Auto) 62 % (31-73) Lymphocytes (%) (Auto) 29 % (24-48) Monocytes (%) (Auto) 7 % (0-9) Eosinophils (%) (Auto) 2 % (0-3) Basophils (%) (Auto) 1 % (0-3) Neutrophils # (Auto) 4.1 x10^3/uL (1.8-7.7) Lymphocytes # (Auto) 1.9 x10^3/uL (1.0-4.8) Monocytes # (Auto) 0.4 x10^3/uL (0.0-1.1) Eosinophils # (Auto) 0.1 x10^3/uL (0.0-0.7) Basophils # (Auto) 0.0 x10^3/uL (0.0-0.2) Sodium Level 143 mmol/L (136-145) Potassium Level 4.4 mmol/L (3.5-5.1) Chloride Level 105 mmol/L (98-107) Carbon Dioxide Level 30 mmol/L (21-32) Anion Gap 8 (6-14) Blood Urea Nitrogen 11 mg/dL (8-26) Creatinine 0.8 mg/dL (0.7-1.3) Estimated GFR (Cockcroft-Gault) 110.1 BUN/Creatinine Ratio 14 (6-20) Glucose Level 151 mg/dL (70-99) Calcium Level 9.1 mg/dL (8.5-10.1) Total Bilirubin 0.6 mg/dL (0.2-1.0) Aspartate Amino Transf (AST/SGOT) 35 U/L (15-37) Alanine Aminotransferase (ALT/SGPT) 43 U/L (16-63) Alkaline Phosphatase 75 U/L (46-116) Total Protein 7.2 g/dL (6.4-8.2) Albumin 3.7 g/dL (3.4-5.0) Albumin/Globulin Ratio 1.1 (1.0-1.7) Triglycerides Level 77 mg/dL (0-150) Cholesterol Level 153 mg/dL (0-200) LDL Cholesterol, Calculated 72 mg/dL (0-100) VLDL Cholesterol, Calculated 15 mg/dL (0-40) Non-HDL Cholesterol Calculated 87 mg/dL (0-129) HDL Cholesterol 66 mg/dL (40-60) Cholesterol/HDL Ratio 2.3 Brief Hospital Course Mr Reeves is an 88yo M w/ PMHx Asthma, h/o CVA, hiatal hernia, PUD who was brought to ED per family 04/14/19 for confusion and violent behavior toward his per daughter and other family. His reports patient has been acting abnormally for the last week. reports patient has been hallucinating and doing unusual things like trying to turn on the car but was unable to because he could not remember how to. reports on another occasion patient tried to tur n on the car with a house machado setting of the alarm. Patient himself states the and daughter are making things up about his behavior. reports patient is agitated as well. Family did bring up litigation against [employer] last night if patient was not admitted to the hospital. Patient was not opposed to hospital admission. CT head negative for acute pathology, did confirm old left basal ganglia infarct. He has been admitted a few times in the past for similar episodes with hallucinations and confusion, sund. Seen by neurology inpatient, no formal evaluation. Found on labs with TSH WNL, B12 as well. Glucose 148 fasting. Mag 1 .7, K 3.5. Admitted for further care of encephalopathy. MMSE bedside reveals score of 26/30 today, however staff assisted patient. I have d/w his daughter he needs formal cognitive evaluation and offered geriatric psych placement and evaluation which she has currently declined, but will move forward with formal cognitive evaluation as there is some concern of a dementia with behavioral disturbance. I have recommended stopping gabapentin as well. Greater than 135 minutes on same day admit and d/c A/P: Acute encephalopathy - with hallucinations, visual and auditory. Previously thought to be late-onset dementia, most likely vascular vs Alzheimer type Dementia features - previously noted by neurology. Will have OT assess his ADLs. May need to consider placement Hypomagnesemia - will replace, replace K as well Chronic pain in right LE - PT to see GI ulcer - on PPI Hiatal hernia - PPI as above Old lacunar infarct in left thalamus and putamen - needs ASA and statin to prevent further CVA. Check A1c given his hyperglycemia Discharge Information Condition at Discharge: Improved Follow Up: Weeks (1) Disposition/Orders: D/C to Home w/ HH Scheduled Lisinopril (Lisinopril) 5 Mg Tablet, 5 MG PO DAILY for HTN for 90 Days, #90 (Reported) Entered as Reported by: NAHOMI OZUNA MD on 04/14/192029 Last Action: New Order on 04/14/192029 by NAHOMI OZUNA MD Memantine Hcl (Namenda) 10 Mg Tablet, 1 TAB PO BID for dementia, #60 Ref 5 Prescribed by: NAHOMI OZUNA MD on 04/15/19 1356 Tramadol Hcl (Tramadol Hcl) 50 Mg Tablet, 50 MG PO BID, Ref 0 (Reported) Entered as Reported by: TURNER ESPINOSA on 06/09/15 012 Scheduled PRN Albuterol Sulfate (Ventolin Hfa Inhaler) 18 Gm Hfa.aer.ad, 2 PUFF INH Q4HRS PRN for COUGH, Ref 0 (Reported) Entered as Reported by: TURNER ESPINOSA on 06/09/15 012 Olanzapine (Zyprexa Zydis) 5 Mg Tab.rapdis, 5 MG PO PRN BID PRN for AGITATION for 30 Days, #30 Prescribed by: NAHOMI OZUNA MD on 04/15/19 1356 Discontinued Medications Gabapentin (Gabapentin) 600 Mg Tablet, 600 MG PO BID, (Reported) Entered as Reported by: TURNER ESPINOSA on 06/09/15121 NAHOMI OZUNA MD Apr 15, 2019 21:54
[2019-04-15 23:07] LABS: HEMOGLOBIN A1C 6.6 % (4.8-5.6)
== END 2019-04-15 15:00 | disposition home health service (06) | DRG 57 ==
LOC: ER 16:18 → ED HOLD 18:34 → 5 SOUTH 20:34
PROVIDERS: ADMIT Internal Medicine; ATTEND Internal Medicine
DX: G30.1 Alzheimer's disease with late onset (principal); G93.40 Encephalopathy, unspecified; F02.81 Dementia in other diseases classified elsewhere, unspecified severity, with behavioral disturbance; F01.51 Vascular dementia, unspecified severity, with behavioral disturbance; J43.9 Emphysema, unspecified; G89.29 Other chronic pain; J45.909 Unspecified asthma, uncomplicated; E78.5 Hyperlipidemia, unspecified; K21.9 Gastro-esophageal reflux disease without esophagitis; E83.42 Hypomagnesemia; K44.9 Diaphragmatic hernia without obstruction or gangrene; K28.9 Gastrojejunal ulcer, unspecified as acute or chronic, without hemorrhage or perforation; Z87.11 Personal history of peptic ulcer disease; Z86.73 Personal history of transient ischemic attack (TIA), and cerebral infarction without residual deficits
CPT/HCPCS: 36415; 70450; 71045; 80053; 80061; 80307; 81001; 82140; 82553; 82607; 82962; 83036; 83605; 83690; 83735; 83880; 84145; 84443; 84484; 85025; 85610; 85730; 87040; 87804; 93005; 96360; 96361; J1650; J1815; J3475; J7030; 99285-25; G0378

== ENCOUNTER → 2019-06-26 | Outpatient (CLI) | payer OTHER ==
[~2019-06-26] MED LIST changes: +LISI-338 PO; +MEMA10TA PO; +OLAN5TAB5 PO
[2019-06-26 16:24] LABS: BASO % 1 % (0-3); EOS # 0.2 x10^3/uL (0.0-0.7); EOS % 2 % (0-3); HEMATOCRIT 43.1 % (39.0-53.0); HEMOGLOBIN 14.9 g/dL (13.0-17.5); LYMPH # 2.7 x10^3/uL (1.0-4.8); LYMPH % 34 % (24-48); MEAN CORPUSCULAR HEMOGLOBIN 32 pg (25-35); MEAN CORPUSCULAR HGB CONC 34 g/dL (31-37); MEAN CORPUSCULAR VOLUME 92 fL (79-100); MONO # 0.6 x10^3/uL (0.0-1.1); MONO % 8 % (0-9); NEUT # 4.4 x10^3/uL (1.8-7.7); NEUT % 56 % (31-73); PLATELET COUNT 179 x10^3/uL (140-400); RED BLOOD COUNT 4.71 x10^6/uL (4.30-5.70); RED CELL DISTRIBUTION WIDTH 13.2 % (11.5-14.5); WHITE BLOOD COUNT 7.9 x10^3/uL (4.0-11.0)
[2019-06-26 16:54] LABS: ALBUMIN 3.9 g/dL (3.4-5.0); CALCIUM 9.4 mg/dL (8.5-10.1); GFR 85.1; POTASSIUM 4.2 mmol/L (3.5-5.1); TOTAL BILIRUBIN 0.4 mg/dL (0.2-1.0); TOTAL PROTEIN 7.8 g/dL (6.4-8.2)
[2019-06-26 17:04] LABS: FREE T4 1.05 ng/dL (0.76-1.46); THYROID STIM HORMONE (TSH) 2.544 uIU/mL (0.358-3.74)
== END | disposition home or self-care (01) ==
LOC: LAB 15:59
PROVIDERS: ATTEND Psychiatry & Neurology Neurology
DX: R41.3 Other amnesia (principal)
CPT/HCPCS: 36415; 80053; 82607; 84439; 84443; 85025

== ENCOUNTER → 2019-07-03 | Outpatient (CLI) | payer OTHER ==
--- NOTE | 2019-07-03 13:29 | RAD ---
RS Compliance Statement: One or more of the following individualized dose reduction techniques were utilized for this examination: 1. Automated exposure control 2. Adjustment of the mA and/or kV according to patient size 3. Use of iterative reconstruction technique CT head without contrast 07/03/2019 10:30 AM INDICATION: History of remote left basal ganglia lacunar infarct COMPARISON: CT head 04/14/2019 TECHNIQUE: Multiple axial CT images of the head were obtained from skull base through the vertex without intravenous contrast. FINDINGS: Head: Ventricles, sulci and basal cisterns are prominent compatible with mild generalized cerebral volume loss. Low-attenuation in the periventricular white matter is suggestive of chronic small vessel ischemic changes. There is no hydrocephalus. Pritchard-white matter differentiation is normal. There is no acute intracranial hemorrhage. There is no mass, mass effect or midline shift. Posterior fossa is normal in appearance. Stable remote lacunar infarct left basal ganglia. Visualized portions of the orbits are normal with exception of bilateral lens replacement. Paranasal sinuses are well aerated. Mastoid air cells are well aerated. Scalp and calvaria are normal. IMPRESSION: No acute intracranial hemorrhage. Stable remote lacunar infarct in left basal ganglia. Low-attenuation in the periventricular white matter is suggestive of chronic small vessel ischemic changes. Electronically signed by: Coretta Telles MD (07/03/2019 1:26 PM) [id number]
== END | disposition home or self-care (01) ==
LOC: CT 10:09
PROVIDERS: ATTEND Psychiatry & Neurology Neurology
DX: I63.81 Other cerebral infarction due to occlusion or stenosis of small artery (principal)
CPT/HCPCS: 70450

== ENCOUNTER → 2019-10-10 | Outpatient (CLI) | payer OTHER ==
[~2019-10-10] MED LIST changes: -OLAN5TAB5 PO; +OLAN5TAB99 PO
--- NOTE | 2019-10-10 17:30 | RAD ---
EXAM: ULTRASOUND-GUIDED THYROID FINE-NEEDLE ASPIRATION. HISTORY: Thyroid nodule. Ultrasound-guided biopsy is requested. FINDINGS: The procedure along with its risks and benefits were explained to the patient. They agreed to proceed. A timeout procedure was performed. Sonographic images of the thyroid gland were obtained. The solid target nodule in the inferior right thyroid lobe was adequately visualized for biopsy. The overlying skin was sterilely prepped and infiltrated with 1% lidocaine for local anesthesia. Under ultrasound guidance, 5 aspirates were obtained using 25-gauge needles. These were hand delivered to pathology who determined them adequate for diagnosis. A sterile dressing was placed. There were no immediate complications. IMPRESSION: 1. Successful ultrasound-guided fine-needle aspiration of the inferior right thyroid nodule. Electronically signed by: Eren Castillo MD (10/10/2019 5:27 PM) [id number]
--- NOTE | 2019-10-13 12:06 | PATHOLOGY ---
Note [facility] Accession Number: [id number] TESTS RESULT FLAG UNITS REF RANGE LAB Clinician Provided Cytology Information No. of containers..01 Other (Miscellaneous) Source: LEFT THYROID DIAGNOSIS: LEFT THYROID NEGATIVE FOR MALIGNANT CELLS. BETHESDA CATEGORY II. SPECIMEN CONSISTS OF BENIGN FOLLICULAR CELLS, HEMOSIDERIN-LADEN MACROPHAGES, COLLOID, AND BLOOD. THIS PATTERN IS CONSISTENT WITH A BENIGN FOLLICULAR NODULE. THIS INTERPRETATION INCLUDES EVALUATION OF A CELL BLOCK. Pathologist ICD10: 02 E04.1 Signed out by: 02 Nguyễn Vidal MD, Pathologist NPI- [id number] Performed by: Miguel Richard, Mechanical Reliability Engineer ([facility]) Gross description: 01 30ML, CLEAR PINK, 1TP 1CB /LCS 10/10/2019 1638 Local FLAG LEGEND: L-Low Normal,H-High Normal,LL-Alert Low,HH-Alert High <-Panic Low,>-Panic High,A-Abnormal,AA-Critical Abnormal Performed at: [facility] [address] [place] [address] Darin Sanchez MD, [address] [address] Nguyễn Vidal MD, Specimen Comment: A courtesy copy of this report has been sent to [phone], [phone] Specimen Comment: [id number] Specimen Comment: Report sent to DR NIEVES / DR SHIELDS Performed at: [address], [place], [place] [id number] MD Darin Sanchez MD Phone: [phone]
== END ==
LOC: US 10:11
PROVIDERS: ATTEND Family Medicine
DX: E04.1 Nontoxic single thyroid nodule (principal)
CPT/HCPCS: 10005; 60300; 76942; 88173; 88305